=== PATIENT | female | born 1985 | race Caucasian/White ===

== ENCOUNTER 2020-08-05 13:09 | Emergency (ER) | payer OTHER, SELFPAY ==
[2020-08-05 13:23] VITALS: BP 102/68; PULSE 67; RESP 20; TEMP 37.2; O2SAT 100
--- NOTE | 2020-08-05 13:39 | ED.SKABFB ---
HPI - Skin/Abscess/Foreign Bdy General Chief complaint: Wound/Laceration Stated complaint: spider bite Time Seen by Provider: 08/05/20 13:23 Source: patient and RN notes reviewed Mode of arrival: ambulatory Limitations: no limitations History of Present Illness HPI narrative: Patient presents today complaining of a possible spider bite to her left lateral thigh x2 days. States she did not visualize whatever bit her. States she does have some itching and some soreness. She has been using hydrocortisone and a heating pad with some relief. Denies fever or red streaking. MD complaint: insect bite/sting Related Data Home Medications Medication Instructions Recorded Confirmed buspirone 15 mg tablet 15 mg PO BID 07/18/20 08/05/20 sertraline 50 mg tablet 50 mg PO DAILY 07/18/20 08/05/20 Allergies Allergy/AdvReac Type Severity Reaction Status Date / Time No Known Allergies Allergy Verified 08/05/20 13:11 Review of Systems Review of Systems: Narrative: CONSTITUTIONAL: Denies body aches, fever, chills, or sweats. EYES: Denies visual changes, redness, or discharge. ENT: Denies rhinorrhea, congestion, sore throat, or otalgia. CARDIOVASCULAR: Denies chest pain, palpitations, or edema. RESPIRATORY: Denies cough or dyspnea. GASTROINTESTINAL: Denies abdominal pain, nausea, vomiting, or diarrhea. GENITOURINARY: Denies dysuria or hematuria. SKIN: Denies rash, itching, or wounds.+ Insect bite to left leg MUSCULOSKELETAL: Denies back pain, joint pain, or myalgia. NEUROLOGIC: Denies headache, numbness, tingling, or weakness. PSYCH: Denies depression or anxiety. [facility] Past Medical History Medical History (Updated 08/05/20 @ 13:49 by Annalee Remy, [facility], ) Depression Social History Social History (Updated 07/18/20 @ 15:44 by Niru Paz) Smoking packs per day: 0.5 Smoking cigarettes per day: 10.0 Years smoked: 5 Smoking pack-years: 2.50 Smoking status: Former smoker Tobacco type: cigarettes Second hand tobacco smoke exposure: No Smoking end date: 12/01/06 Alcohol intake: current Drinks per week: 6 Substance use: never Substance use type: does not use Gender identity (if verbalized by the patient): Female Comments At time of signature, I have reviewed and agree with nursing past medical, surgical, social and family history unless otherwise noted. Please see nursing chart for further information. There is no relevant family history pertinent to the presenting complaint Exam Narrative: Exam Narrative: GENERAL: Well-appearing, well-nourished, and in no acute distress. HEAD: Normocephalic, atraumatic. EYES: EOMI. No redness or drainage. Conjunctivae normal. ENT: Mucous membranes pink and moist. NECK: Normal AROM. Supple. No lymphadenopathy. CHEST: No respiratory distress. EXTREMITIES: Normal range of motion. No edema. SKIN: Warm, dry, no rash. Capillary refill normal. Normal skin turgor. Puncture wound with 8x6cm area of ecchymosis surrounding the puncture wound with some central clearing ~3cm round. Ecchymosis is nonblanching. No induration or fluctuance. Mild erythema in the center, at the edges of the ecchymosis. Distal sensation intact. Capillary refill normal. No edema of the leg noted. No lymphangitis. Does not appear consistent with erythema migrans. NEURO: No focal deficits. Alert and oriented x3. Gait steady. PSYCH: Normal affect. No signs of depression or anxiety. Course Vital Signs Vital signs: Vital Signs Temperature 99 F 08/05/20 13:23 Pulse Rate 67 08/05/20 13:23 Respiratory Rate 08/05/20 13:23 Blood Pressure 102/68 08/05/20 13:23 Pulse Oximetry 100 08/05/20 13:23 Temperature 99 F 08/05/20 13:23 Pulse Rate 67 08/05/20 13:23 Respiratory Rate 08/05/20 13:23 Blood Pressure 102/68 08/05/20 13:23 Pulse Oximetry 100 08/05/20 13:23 Reviewed MDM - Skin/Abscess/Foreign Bdy Differential Diagnosis Differential
== END 2020-08-05 13:45 | disposition home or self-care (01) ==
PROVIDERS: Emergency Provider Nurse Practitioner; PCP Family Medicine
DX: L03.116 Cellulitis of left lower limb (principal); S70.362A Insect bite (nonvenomous), left thigh, initial encounter; W57.XXXA Bitten or stung by nonvenomous insect and other nonvenomous arthropods, initial encounter; Z87.891 Personal history of nicotine dependence; F32.9 Major depressive disorder, single episode, unspecified
CPT/HCPCS: 99213; G0463

== ENCOUNTER 2020-10-17 16:43 | Outpatient (CLI) | payer OTHER, SELFPAY ==
--- NOTE | ~2020-10-17 | XR_ITS ---
EXAMINATION: XR chest 2V EXAM DATE: 10/17/2020 17:04 INDICATION: R05 - Cough, shortness of breath for 8 months. TECHNIQUE: Frontal and lateral projections of the chest obtained and reviewed. There is no prior chago dy for comparison. FINDINGS: Moderate hyperinflation. The lungs are clear. There are no pleural effusions. The cardiom ediastinal silhouette is within normal limits. There is no pneumothorax suspected. The bones and so ft tissues are unremarkable. IMPRESSION: 1. No acute cardiopulmonary findings. 2. Hyperinflation. Reviewed, dictated and finalized at location A. ER CLERK
== END 2020-10-17 16:44 | disposition home or self-care (01) ==
LOC: ANHIMG 16:46
PROVIDERS: PCP Family Medicine; Visit Provider Family Medicine
DX: R05 Cough (principal); R91.8 Other nonspecific abnormal finding of lung field
CPT/HCPCS: 71046

== ENCOUNTER 2020-12-05 08:41 | Outpatient (CLI) | payer OTHER, SELFPAY ==
--- NOTE | 2020-12-07 07:08 | P.PCNPFT_ITS ---
PFT Interpretation This is a pulmonary function test with pre and post-bronchodilator spirometry, plethysmography and diffusing capacity. The test was performed and results interpreted in accordance with the 2019 and 2005 ATS/ERS Task Force guidelines respectively using the Jacob/Corrie reference equations. Findings: Spirometry: There is decreased maximal expiratory airflow at all lung volumes with a concave expiratory flow tracing. The pre-bronchodilator FVC is 3.26 L, 80% predicted. The pre-bronchodilator FEV1 is 1.88 L, 59% predicted. The FEV1:FVC ratio is 58%. The post-bronchodilator FVC is 3.48 L, representing a 7% increase. The post-bronchodilator FEV1 is 2.33 L, representing 24% increase. Plethysmography: The total lung capacity is 4.96 L, 84% predicted. The functional residual capacity is 3.12 L, 90% predicted. The residual volume is 1.70 L, 87% predicted. Diffusing capacity: The absolute diffusing capacity is 18.7, 85% predicted. Th e diffusing capacity corrected for alveolar volume is 4.52, 103 predicted. Impression: There is a moderately severe obstructive abnormality with significant improvement after inhaling a single dose of albuterol. The lung volumes are normal. The absolute diffusing capacity is normal There are no prior studies for comparison.
== END 2020-12-05 08:42 | disposition home or self-care (01) ==
PROVIDERS: PCP Family Medicine; Visit Provider Family Medicine
DX: R05 Cough (principal); R94.2 Abnormal results of pulmonary function studies
CPT/HCPCS: 94060; 94726; 94729

== ENCOUNTER 2021-05-24 17:11 | Emergency (ER) | payer OTHER, SELFPAY ==
[2021-05-24 17:16] VITALS: BP 121/82; PULSE 82; RESP 16; TEMP 36.9; O2SAT 100
[2021-05-24 17:26] VITALS: BP 121/82; PULSE 82; RESP 16; TEMP 36.9; O2SAT 100
--- NOTE | 2021-05-24 17:36 | ED.EXTPRO ---
HPI - Extremity Problem General Chief complaint: Extremity Problem,Nontraumatic Stated complaint: Lt hand swelling Time Seen by Provider: 05/24/21 17:24 Source: patient and RN notes reviewed Mode of arrival: ambulatory Limitations: no limitations History of Present Illness HPI Narrative: Patient presents today complaining of swelling to her left hand. She was stung or bitten twice, once to the thumb and once to the fifth finger, yesterday around 1500. Yesterday she started developing swelling to her fingers that extended to the distal portions of her metacarpals. As the day has gone on today the swelling has extended to the wrist and distal forearm. She has been applying ice, elevating her hand, and taking ibuprofen and Benadryl at home without relief. She describes burning to her first and fifth finger. She currently rates the pain 06/09. MD Complaint: extremity swelling Related Data Home Medications Medication Instructions Recorded Confirmed clonazepam 0.5 mg PO PRN PRN 05/24/21 05/24/21 quetiapine 25 mg PO DAILY 05/24/21 05/24/21 venlafaxine 150 mg PO DAILY 05/24/21 05/24/21 Allergies Allergy/AdvReac Type Severity Reaction Status Date / Time No Known Allergies Allergy Verified 05/24/21 17:14 Review of Systems Review of Systems: Narrative: CONSTITUTIONAL: Denies body aches, fever, chills, or sweats. EYES: Denies visual changes, redness, or discharge. ENT: Denies rhinorrhea, congestion, sore throat, or otalgia. CARDIOVASCULAR: Denies chest pain, palpitations, or edema. RESPIRATORY: Denies cough or dyspnea. GASTROINTESTINAL: Denies abdominal pain, nausea, vomiting, or diarrhea. GENITOURINARY: Denies dysuria or hematuria. SKIN: Left hand swelling, stings to left first and fifth fingers MUSCULOSKELETAL: Denies back pain, joint pain, or myalgia. NEUROLOGIC: Denies headache, numbness, tingling, or weakness. PSYCH: Denies depression or anxiety. [facility] Past Medical History Medical History (Updated 05/24/21 @ 17:40 by Annalee Remy, PROCEDURES ANALYST, ) Depression Social History Social History (Updated 10/17/20 @ 16:00 by Niru Paz) Smoking packs per day: 0.5 Smoking cigarettes per day: 10.0 Years smoked: 5 Smoking pack-years: 2.50 Smoking status: Former smoker Tobacco type: cigarettes Second hand tobacco smoke exposure: No Smoking end date: 12/01/06 Alcohol intake: current Drinks per week: 6 Substance use: current Substance use type: marijuana Gender identity (if verbalized by the patient): Female Comments At time of signature, I have reviewed and agree with nursing past medical, surgical, social and family history unless otherwise noted. Please see nursing chart for further information. There is no relevant family history pertinent to the presenting complaint Exam Narrative: Exam Narrative: GENERAL: Well-appearing, well-nourished, and in no acute distress. HEAD: Normocephalic, atraumatic. EYES: EOMI. No redness or drainage. Conjunctivae normal. ENT: Mucous membranes pink and moist. NECK: Normal AROM. CHEST: No respiratory distress. EXTREMITIES: Left hand: Moderate swelling to all 5 fingers that extends to the distal forearm no obvious puncture wounds appreciated. No erythema noted. No ecchymosis. No induration noted. First and fifth fingers are mildly tender to palpation. Range of motion in the fingers is somewhat limited due to swelling. Distal sensation intact in all fingers. Capillary refill normal. Radial pulse normal. SKIN: Warm, dry, no rash. Capillary refill normal. Normal skin turgor. NEURO: No focal deficits. Alert and oriented x3. Gait steady. PSYCH: Normal affect. No signs of depression or anxiety. Course Vital Signs Vital signs: Vital Signs Temperature 98.4 F 05/24/21 17:16 Pulse Rate 82 05/24/21 17:16 Respiratory Rate 16 05/24/21 17:16 Blood Pressure 121/82 05/24/21 17:16 Pulse Oximetry 100 05/24/21 17:16 Temperature
== END 2021-05-24 17:47 | disposition home or self-care (01) ==
PROVIDERS: Emergency Provider Nurse Practitioner; PCP Family Medicine
DX: T63.481A Toxic effect of venom of other arthropod, accidental (unintentional), initial encounter (principal); Z87.891 Personal history of nicotine dependence; F32.9 Major depressive disorder, single episode, unspecified
CPT/HCPCS: 99213; G0463